=== PATIENT | male | born 1940 | race Caucasian/White ===

== ENCOUNTER 2022-06-12 12:33 | Inpatient (IN) | payer BC, MEDICAID ==
[~2022-06-12] VITALS: Ht 157.5 cm; Wt 47.2 kg
[2022-06-12] MEDS ORDERED: SODIUM CHLORIDE 0.9% 1,000 ML IV ONE (12:45)
[2022-06-12 13:31] LABS: HEMATOCRIT. 50.6 % (42.0-52.0); HEMOGLOBIN. 16.2 g/dL (14.0-18.0); MEAN CORPUSCULAR HEMOGLOBIN 32.6 pg (28.0-32.0); MEAN CORPUSCULAR VOLUME 101.7 fL (80.0-94.0); MEAN PLATELET VOLUME 8.8 fl (7.4-10.4); PLATELET 331 x1000/uL (130-400); RED BLOOD CELL COUNT 4.97 mill/uL (4.7-6.1); RED CELL DISTRIBUTION WIDTH 15.1 % (11.6-14.6)
[2022-06-12 13:39] LABS: CHLORIDE 99 mEq/L (98-107)
[2022-06-12 13:57] LABS: PLATELET ESTIMATE NORMAL
[2022-06-12] MEDS ORDERED: ASPIRIN 325MG EC TABLET PO NR (14:15)
[2022-06-12] MEDS ORDERED: INSULIN REGULAR 100U/100ML PMX 100 ML IV NR ×2 (14:18→14:45)
[2022-06-12] MEDS ORDERED: SODIUM CHLORIDE 0.9% 1000ML BAG (SEPSIS BOLUS) IV NR (14:19)
[2022-06-12] MEDS ORDERED: ACETAMINOPHEN 325MG TABLET PO PRN ×2 (16:45)
[2022-06-12] MEDS ORDERED: CLONIDINE 0.1MG TABLET PO PRN (16:45)
[2022-06-12] MEDS ORDERED: ZOLPIDEM TARTRATE 5MG TABLET PO PRN (16:45)
[2022-06-12] MEDS ORDERED: GUAIFENESIN 200MG/10ML SUGAR FREE UDC PO PRN (16:45)
[2022-06-12] MEDS ORDERED: ONDANSETRON HCL 4MG/2ML INJ IV PRN (16:45)
[2022-06-12] MEDS ORDERED: DIPHENHYDRAMINE 50MG/ML VIAL IV PRN (16:45)
[2022-06-12] MEDS ORDERED: MAGNESIUM/ALUMINUM HYDROXIDE/SIMETHICONE 30ML UDC PO PRN (16:45)
[2022-06-12] MEDS: SODIUM CHLORIDE 0.9% 1,000 ML IV SCH ×2 (16:45→23:40)
[2022-06-12] MEDS ORDERED: DEXTROSE 50% WATER 50ML SYRINGE IV PRN (17:15)
[2022-06-12] MEDS ORDERED: ENOXAPARIN 30MG/0.3ML SYR SUBCUT SCH (18:00)
[2022-06-12] MEDS ORDERED: INSULIN REGULAR (DRIP) 100 UNITS in SODIUM CHLORIDE 0.9% 99 ML IV SCH (19:00)
[2022-06-12] MEDS ORDERED: INSULIN REGULAR (DRIP) 100 UNITS in SODIUM CHLORIDE 0.9% 99 ML IV PRN (19:00)
[2022-06-12] MEDS: BLOOD SUGAR DIAGNOSTIC STRIP TEST SCH ×5 (19:03→23:24)
[2022-06-12 23:00] VITALS: BP 118/100
[2022-06-12 23:30] VITALS: BP 149/99
[2022-06-13] VITALS (25 sets, daily range): BP systolic 120–160; BP diastolic 57–96
[2022-06-13] MEDS: BLOOD SUGAR DIAGNOSTIC STRIP TEST SCH ×14 (00:30→20:22)
[2022-06-13] MEDS: SODIUM CHLORIDE 0.9% 1,000 ML IV SCH ×2 (05:53→08:30)
[2022-06-13] MEDS ORDERED: INSULIN REGULAR 100U/100ML PMX 100 ML IV SCH (09:15)
[2022-06-13] MEDS ORDERED: INSULIN REGULAR 100U/100ML PMX 99 ML IV SCH (09:15)
[2022-06-13] MEDS: PANTOPRAZOLE SODIUM 40 MG/VIAL IV SCH (09:37)
[2022-06-13 10:16] LABS: BASOPHILS % 0.1 % (0.0-2.0); EOSINOPHILS % 0.1 % (0.0-5.0); HEMATOCRIT. 41.4 % (42.0-52.0); HEMOGLOBIN. 13.7 g/dL (14.0-18.0); LYMPHOCYTES % 9.6 % (20.0-50.0); MEAN CORPUSCULAR VOLUME 96.6 fL (80.0-94.0); MEAN PLATELET VOLUME 7.9 fl (7.4-10.4); MONOCYTES % 2.7 % (2.0-8.0); NEUTROPHILS % 87.5 % (40.0-76.0); PLATELET 228 x1000/uL (130-400); RED BLOOD CELL COUNT 4.29 mill/uL (4.7-6.1); RED CELL DISTRIBUTION WIDTH 14.2 % (11.6-14.6)
[2022-06-13 10:22] LABS: CHLORIDE 125 mEq/L (98-107)
[2022-06-13 10:29] LABS: PHOSPHORUS 2.2 mg/dL (2.5-4.9)
[2022-06-13] MEDS ORDERED: DEXTROSE 50% WATER 50ML SYRINGE IV PRN (11:00)
[2022-06-13] MEDS: SODIUM CHLORIDE 0.45% 1,000 ML IV SCH ×2 (11:23→20:42)
[2022-06-13] MEDS: INSULIN LISPRO 100 UNITS/ML SUBCUT SCH ×3 (12:00→20:43)
[2022-06-13] MEDS: ENOXAPARIN 40MG/0.4ML SYR SUBCUT SCH (20:40)
[2022-06-14] VITALS: BP 144/64
[2022-06-14 04:00] VITALS: BP 128/51
[2022-06-14] MEDS: BLOOD SUGAR DIAGNOSTIC STRIP TEST SCH ×4 (06:36→21:29)
[2022-06-14] MEDS: SODIUM CHLORIDE 0.45% 1,000 ML IV SCH (07:00)
[2022-06-14 07:44] LABS: CHLORIDE 118 mEq/L (98-107)
[2022-06-14 07:52] LABS: PHOSPHORUS 1.6 mg/dL (2.5-4.9)
[2022-06-14 08:00] VITALS: BP 131/61
[2022-06-14] MEDS: PANTOPRAZOLE SODIUM 40 MG/VIAL IV SCH (10:31)
[2022-06-14] MEDS: INSULIN LISPRO 100 UNITS/ML SUBCUT SCH ×4 (10:36→23:00)
[2022-06-14 12:00] VITALS: BP 115/58
[2022-06-14 16:00] VITALS: BP 120/64
[2022-06-14 16:40] LABS: BASOPHILS % 0.1 % (0.0-2.0); EOSINOPHILS % 0.3 % (0.0-5.0); HEMATOCRIT. 40.8 % (42.0-52.0); HEMOGLOBIN. 13.6 g/dL (14.0-18.0); LYMPHOCYTES % 16.5 % (20.0-50.0); MEAN CORPUSCULAR HEMOGLOBIN 32.1 pg (28.0-32.0); MEAN CORPUSCULAR VOLUME 95.9 fL (80.0-94.0); MEAN PLATELET VOLUME 8.3 fl (7.4-10.4); MONOCYTES % 3.6 % (2.0-8.0); NEUTROPHILS % 79.5 % (40.0-76.0); PLATELET 200 x1000/uL (130-400); RED BLOOD CELL COUNT 4.25 mill/uL (4.7-6.1); RED CELL DISTRIBUTION WIDTH 14.1 % (11.6-14.6)
[2022-06-14 16:55] LABS: CHLORIDE 118 mEq/L (98-107)
[2022-06-14 17:40] LABS: VITAMIN B12 SERUM 303 pg/mL (211-911)
[2022-06-14 20:00] VITALS: BP 116/63
[2022-06-14] MEDS: ENOXAPARIN 40MG/0.4ML SYR SUBCUT SCH (21:27)
[2022-06-15] VITALS: BP 136/66
[2022-06-15] MEDS: SODIUM CHLORIDE 0.45% 1,000 ML IV SCH ×4 (00:35→20:34)
[2022-06-15 04:00] VITALS: BP 108/46
[2022-06-15] MEDS: BLOOD SUGAR DIAGNOSTIC STRIP TEST SCH ×4 (07:02→20:34)
[2022-06-15 08:00] VITALS: BP 118/56
[2022-06-15] MEDS: FAMOTIDINE 20MG/2ML VIAL IV SCH (08:14)
[2022-06-15] MEDS: INSULIN LISPRO 100 UNITS/ML SUBCUT SCH ×4 (08:14→20:33)
[2022-06-15 12:00] VITALS: BP 103/54
[2022-06-15] MEDS ORDERED: POTASSIUM CHLORIDE 20MEQ/PACKET PO NR (14:30)
[2022-06-15 16:00] VITALS: BP 100/54
[2022-06-15 19:50] LABS: CLARITY URINE CLEAR (CLEAR); COLOR URINE YELLOW (YELLOW); KETONES URINE NEGATIVE (NEGATIVE); LEUKOCYTE ESTERASE URINE NEGATIVE (NEGATIVE); NITRITE URINE NEGATIVE (NEGATIVE); OCCULT BLOOD URINE 1+ (NEGATIVE); PROTEIN URINE 1+ (NEGATIVE); SPECIFIC GRAVITY URINE 1.022 (1.005-1.030)
[2022-06-15 20:00] VITALS: BP 100/70
[2022-06-15 20:09] LABS: *AMPHETAMINES SCREEN URINE NEGATIVE (NEGATIVE); *BARBITURATES SCREEN URINE NEGATIVE (NEGATIVE); *BENZODIAZEPINES SCREEN URINE NEGATIVE (NEGATIVE); *COCAINE SCREEN URINE NEGATIVE (NEGATIVE); CANNABINOID URINE SCREEN NEGATIVE (NEGATIVE); METHADONE URINE SCREEN NEGATIVE (NEGATIVE); OPIATES URINE SCREEN NEGATIVE (NEGATIVE); PHENCYCLIDINE URINE SCREEN NEGATIVE (NEGATIVE)
[2022-06-15] MEDS: ENOXAPARIN 40MG/0.4ML SYR SUBCUT SCH (20:30)
[2022-06-16] VITALS: BP 102/77
[2022-06-16 04:00] VITALS: BP 100/53
[2022-06-16] MEDS: BLOOD SUGAR DIAGNOSTIC STRIP TEST SCH ×4 (06:41→21:00)
[2022-06-16 08:00] VITALS: BP 134/54
[2022-06-16] MEDS: FAMOTIDINE 20MG/2ML VIAL IV SCH (08:41)
[2022-06-16] MEDS: INSULIN LISPRO 100 UNITS/ML SUBCUT SCH ×4 (08:41→21:00)
[2022-06-16] MEDS: SODIUM CHLORIDE 0.45% 1,000 ML IV SCH (09:33)
[2022-06-16 12:00] VITALS: BP 130/64
[2022-06-16 15:56] LABS: BASOPHILS % 0.2 % (0.0-2.0); EOSINOPHILS % 1.9 % (0.0-5.0); HEMATOCRIT. 38.5 % (42.0-52.0); LYMPHOCYTES % 26.1 % (20.0-50.0); MEAN CORPUSCULAR HEMOGLOBIN 32.4 pg (28.0-32.0); MEAN CORPUSCULAR VOLUME 95.9 fL (80.0-94.0); MEAN PLATELET VOLUME 8.2 fl (7.4-10.4); MONOCYTES % 6.1 % (2.0-8.0); NEUTROPHILS % 65.7 % (40.0-76.0); PLATELET 194 x1000/uL (130-400); RED BLOOD CELL COUNT 4.01 mill/uL (4.7-6.1); RED CELL DISTRIBUTION WIDTH 13.8 % (11.6-14.6)
[2022-06-16 16:00] VITALS: BP 122/57
[2022-06-16 16:50] LABS: CHLORIDE 108 mEq/L (98-107)
[2022-06-16 20:00] VITALS: BP 112/59
[2022-06-16] MEDS: ENOXAPARIN 40MG/0.4ML SYR SUBCUT SCH (21:00)
[2022-06-17] VITALS: BP 112/60
[2022-06-17 04:00] VITALS: BP 120/69
[2022-06-17] MEDS: BLOOD SUGAR DIAGNOSTIC STRIP TEST SCH ×4 (07:40→21:00)
[2022-06-17 08:00] VITALS: BP 110/54
[2022-06-17] MEDS: INSULIN LISPRO 100 UNITS/ML SUBCUT SCH ×4 (08:45→21:47)
[2022-06-17] MEDS: FAMOTIDINE 20MG TABLET PO SCH (08:56)
[2022-06-17] MEDS ORDERED: POTASSIUM CHLORIDE 20MEQ/PACKET PO SCH ×2 (09:45→17:00)
[2022-06-17 12:00] VITALS: BP 109/64
[2022-06-17 16:00] VITALS: BP 111/56
[2022-06-17 16:49] LABS: BASOPHILS % 0.4 % (0.0-2.0); EOSINOPHILS % 2.1 % (0.0-5.0); HEMATOCRIT. 37.1 % (42.0-52.0); HEMOGLOBIN. 12.8 g/dL (14.0-18.0); LYMPHOCYTES % 25.2 % (20.0-50.0); MEAN CORPUSCULAR HEMOGLOBIN 32.7 pg (28.0-32.0); MEAN CORPUSCULAR VOLUME 94.6 fL (80.0-94.0); MEAN PLATELET VOLUME 7.6 fl (7.4-10.4); MONOCYTES % 8.1 % (2.0-8.0); NEUTROPHILS % 64.2 % (40.0-76.0); PLATELET 246 x1000/uL (130-400); RED BLOOD CELL COUNT 3.92 mill/uL (4.7-6.1); RED CELL DISTRIBUTION WIDTH 13.6 % (11.6-14.6)
[2022-06-17 16:58] LABS: CHLORIDE 108 mEq/L (98-107)
[2022-06-17] MEDS ORDERED: POTASSIUM CHLORIDE 20MEQ TABLET SR PO NR (17:00)
[2022-06-17 20:00] VITALS: BP 102/48
[2022-06-17] MEDS: ENOXAPARIN 40MG/0.4ML SYR SUBCUT SCH (21:49)
[2022-06-18] VITALS: BP 110/58
[2022-06-18 04:00] VITALS: BP 107/62
[2022-06-18 06:23] LABS: BASOPHILS % 0.5 % (0.0-2.0); EOSINOPHILS % 2.3 % (0.0-5.0); HEMATOCRIT. 37.8 % (42.0-52.0); HEMOGLOBIN. 12.8 g/dL (14.0-18.0); LYMPHOCYTES % 35.3 % (20.0-50.0); MEAN CORPUSCULAR HEMOGLOBIN 32.2 pg (28.0-32.0); MEAN CORPUSCULAR VOLUME 94.9 fL (80.0-94.0); MEAN PLATELET VOLUME 7.3 fl (7.4-10.4); MONOCYTES % 8.1 % (2.0-8.0); NEUTROPHILS % 53.8 % (40.0-76.0); PLATELET 264 x1000/uL (130-400); RED BLOOD CELL COUNT 3.98 mill/uL (4.7-6.1); RED CELL DISTRIBUTION WIDTH 13.9 % (11.6-14.6)
[2022-06-18 06:31] LABS: CHLORIDE 110 mEq/L (98-107)
[2022-06-18] MEDS: BLOOD SUGAR DIAGNOSTIC STRIP TEST SCH ×3 (07:40→17:02)
[2022-06-18 08:00] VITALS: BP 102/57
[2022-06-18] MEDS: INSULIN LISPRO 100 UNITS/ML SUBCUT SCH ×3 (08:33→17:03)
[2022-06-18] MEDS: FAMOTIDINE 20MG TABLET PO SCH (08:34)
[2022-06-18] MEDS ORDERED: LACTULOSE 20G/30ML UDC PO NR (11:00)
[2022-06-18] MEDS ORDERED: NA PHOS,M-B/NA PHOS,DI-BA ENEMA 118ML PR NR (11:00)
[2022-06-18 11:05] VITALS: BP 102/57
[2022-06-18 12:00] VITALS: BP 112/60
[2022-06-18 16:51] VITALS: BP 106/55
== END 2022-06-18 18:49 | disposition home or self-care (01) | DRG 280 ==
LOC: ER 12:33 → MICUNO 15:36 → EDBEDREQ 15:50 → ENRESERV 22:00 → MICUSO 23:16 → 7WST 06-13 22:43 → UNDODISIN 06-17 09:30
PROVIDERS: ADMIT Internal Medicine; ATTEND Internal Medicine
DX: I21.4 Non-ST elevation (NSTEMI) myocardial infarction (principal); E11.10 Type 2 diabetes mellitus with ketoacidosis without coma; N17.9 Acute kidney failure, unspecified; E87.0 Hyperosmolality and hypernatremia; Z68.1 Body mass index [BMI] 19.9 or less, adult; I10 Essential (primary) hypertension; E78.5 Hyperlipidemia, unspecified; E87.6 Hypokalemia; R62.7 Adult failure to thrive; Z83.3 Family history of diabetes mellitus
CPT/HCPCS: 36415; 71045; 80048; 80053; 80305; 81003; 82010; 82607; 82962; 83036; 83735; 83880; 84100; 84484; 85025; 92610; 93005; 93306; 97162; 97166; 97535; 99291; C9113; J1650; J1815; J3490; J7030; J7050